=== PATIENT | male | born 1970 | race African-American/Black ===

== ENCOUNTER 2022-01-12 08:07 | Day surgery (SDC) | payer OTHER ==
[2022-01-07 15:00] VITALS: BMI 41.7
[2022-01-12] MEDS ORDERED: PROPOFOL 20 ML ONE ×2 (09:56)
[2022-01-12 10:40] VITALS: TEMP 97.5
[2022-01-12 10:51] VITALS: BP 124/68; PULSE 76
== END 2022-01-12 11:08 | disposition home or self-care (01) ==
LOC: FASU-ENDO 08:07
PROVIDERS: ATTEND Internal Medicine Gastroenterology
PROC: 0DBH8ZX Excision of Cecum, Via Natural or Artificial Opening Endoscopic, Diagnostic (ICD-10-PCS; principal; 2022-01-12 10:13)
DX: Z12.11 Encounter for screening for malignant neoplasm of colon (principal)
CPT/HCPCS: 88305-TC